=== PATIENT | male | born 1935 | race Caucasian/White ===

== ENCOUNTER 2022-03-20 11:26 | Day surgery (SDC) | payer MEDICARE ==
[2022-03-20] MEDS ORDERED: DIPRIVAN 200 MG/20 ML IV ONE (12:20)
[2022-03-20] MEDS ORDERED: Lactated Ringers 1,000 ML IV ONE (12:30)
--- NOTE | 2022-03-20 13:22 | XRAY ---
Indication: Bilateral L4-S1 MBB. Intraoperative fluoroscopy provided for 10 seconds. Single digital spot image submitted for interpretation demonstrates posterior needle tips projecting over the expected left and right L4-S1 nerve roots. Correlate with intraoperative findings/report.
--- NOTE | 2022-03-20 13:28 | XRAY ---
10 seconds fluoroscopy time in surgery for bilateral L4-S1 MBB.
== END 2022-03-20 12:49 | disposition home or self-care (01) ==
LOC: SDC-PAIN 11:26
PROVIDERS: ATTEND Psychiatry & Neurology Pain Medicine
DX: M47.816 Spondylosis without myelopathy or radiculopathy, lumbar region (principal); Z79.899 Other long term (current) drug therapy
CPT/HCPCS: 64493; 64494; 72020; 77002; J2704

== ENCOUNTER 2022-04-17 09:30 | Day surgery (SDC) | payer MEDICARE ==
[2022-04-17] MEDS ORDERED: Depo-Medrol 40 MG/ML IM ONE (09:31)
[2022-04-17] MEDS ORDERED: Marcaine Mpf 0.5% Vial 30 Ml IJ ONE (09:31)
[2022-04-17] MEDS ORDERED: DIPRIVAN 200 MG/20 ML IV ONE (11:42)
--- NOTE | 2022-04-17 12:45 | XRAY ---
Indication: Bilateral L4-S1 MBB. Intraoperative fluoroscopy provided for 14 seconds. Single digital spot image submitted for interpretation demonstrate posterior needle tips projecting over the expected left and right L4-S1 nerve roots. Correlate with intraoperative findings/report.
--- NOTE | 2022-04-17 14:47 | XRAY ---
14 seconds fluoroscopy time in surgery for bilateral L4-S1 MBB.
== END 2022-04-17 12:09 | disposition home or self-care (01) ==
LOC: SDC-PAIN 09:30
PROVIDERS: ATTEND Psychiatry & Neurology Pain Medicine
DX: M47.816 Spondylosis without myelopathy or radiculopathy, lumbar region (principal); Z79.899 Other long term (current) drug therapy
CPT/HCPCS: 64493; 64494; 72020; 77002; J1030; J2704

== ENCOUNTER 2022-05-15 09:25 | Day surgery (SDC) | payer MEDICARE ==
[2022-05-15] MEDS ORDERED: Marcaine Mpf 0.5% Vial 30 Ml IJ ONE (09:26)
[2022-05-15] MEDS ORDERED: Depo-Medrol 40 MG/ML IM ONE (09:26)
[2022-05-15] MEDS ORDERED: XYLOCAINE-MPF 1% 5ML SDV IJ ONE (09:26)
[2022-05-15] MEDS ORDERED: DIPRIVAN 200 MG/20 ML IV ONE (10:46)
[2022-05-15] MEDS ORDERED: Lactated Ringers 1,000 ML IV ONE (11:16)
--- NOTE | 2022-05-15 14:00 | XRAY ---
Indication: Right L4-S1 RFA. Intraoperative fluoroscopy provided for 21 seconds. 3 digital spot image submitted for interpretation demonstrates posterior needle tips projecting over the expected right L4-S1 nerve roots. Correlate with intraoperative findings/report.
--- NOTE | 2022-05-15 16:47 | XRAY ---
21 seconds fluoroscopy time in surgery for right L4-S1 RFA.
== END 2022-05-15 11:15 | disposition home or self-care (01) ==
LOC: SDC-PAIN 09:25
PROVIDERS: ATTEND Psychiatry & Neurology Pain Medicine
DX: M47.816 Spondylosis without myelopathy or radiculopathy, lumbar region (principal); Z79.899 Other long term (current) drug therapy
CPT/HCPCS: 64635; 64636; 72100; 77002; 99100; J1030; J2704

== ENCOUNTER → 2022-05-22 | Day surgery (SDC) | payer MEDICARE | LOC: SDC-PAIN 09:49 | PROVIDERS: ATTEND Psychiatry & Neurology Pain Medicine | DX: Z53.9 Procedure and treatment not carried out, unspecified reason (principal) ==